=== PATIENT | male | born 1950 | race Caucasian/White ===

== ENCOUNTER 2017-04-27 13:57 | Emergency (ER) | payer OTHER ==
[~2017-04-27] VITALS: Ht 180.3 cm; Wt 131.8 kg
[~2017-04-27 13:57] MED LIST: AMOX TR-K CLV1 EAC4 PO; ANCEF,KEFZ2 GM/100 M IV; ASCORBIC ACID500 M3 PO; ASPIR 8181 M1 PO; ASTEPRO 0.15%30 ML BOTH NARES; ATENOLOL50 MG PO; ATORVASTATIN CA40 MG PO; AZITHROMYCIN250 MG1 PO; BENAZEPRIL HCL40 MG PO; BETAPACE 120 M120 MG PO; CARDURA XL8 MG PO; CARDURA4 MG PO; CEFUROXIME500 MG PO; CENTRUM SILVER1 EAC3 PO; COQ-10100 MG PO; CORICIDIN HBP1 EACH PO; COUMADIN5 MG PO; CRANBERRY 4001 EAC1 PO; DIGITEK250 MC2 PO; DOCUSATE SODIU100 MG PO; DOXAZOSIN MESYLA4 MG PO; ECHINACEA167 MG PO; ENDOCET 5-3251 EACH PO; FINASTERIDE5 MG PO; FISH OIL 1,0001 EAC7 PO; FISH OIL 1,2001 EAC4 PO; GARLIC1000 MG PO; LIPITOR40 MG PO; LIPO-FLAVONO1 TABLET PO; LIPOFLAVOVIT C1 EACH PO; LOTENSIN40 MG PO; MELOXICAM15 MG PO; MONTELUKAST SOD10 MG PO; MUCINEX DM ER1 EACH PO; OSTEO BI-FLEX1 EAC1 PO; SOTALOL120 MG PO; SPIRIVA RESPIMAT4 G1 IH; SYMBICORT60 INHALAT IH; TENORMIN50 MG PO; TRAMADOL HCL50 MG PO; VANCOMYCIN1 GM/250 M IV; VENASTAT PO; VITAMIN B-122000 MC1 PO; VITAMIN D31000 UNIT PO; VITAMIN E400 UNIT PO; WARFARIN SODIUM5 MG PO; XARELTO20 MG PO; ZINC50 M1 PO; ZYRTEC10 M2 PO
[2017-04-27 17:38] VITALS: BP 135/94
== END 2017-04-27 17:39 | disposition home or self-care (01) ==
LOC: EME 13:57
DX: S93.402A Sprain of unspecified ligament of left ankle, initial encounter (principal); W01.0XXA Fall on same level from slipping, tripping and stumbling without subsequent striking against object, initial encounter; I10 Essential (primary) hypertension; E78.5 Hyperlipidemia, unspecified; I48.91 Unspecified atrial fibrillation; Z79.01 Long term (current) use of anticoagulants; Z96.651 Presence of right artificial knee joint; Z87.891 Personal history of nicotine dependence
CPT/HCPCS: 73610; 99281; 99283

== ENCOUNTER 2017-07-06 14:57 | Emergency (ER) | payer OTHER ==
[~2017-07-06] VITALS: Ht 182.9 cm; Wt 137.9 kg
[2017-07-06 15:28] LABS: HEMATOCRIT 41.2 % (38.0-50.0); MCH 30.9 PG (29.0-34.0); MCV 90.9 FL (86-99); PLATELET COUNT 217 K/uL (156-360); RBC DIS.WIDTH-CV 12.9 % (11.8-14.6); RBC DIS.WIDTH-SD 42.6 % (39-53); RED BLOOD COUNT 4.53 M/uL (4.00-5.50); WHITE BLOOD COUNT 10.2 K/uL (4.1-10.2)
[2017-07-06 15:38] LABS: CHLORIDE 108 mEq/L (99-109); POTASSIUM 3.9 mEq/L (3.7-5.4); SODIUM 142 mEq/L (136-147)
[2017-07-06 15:39] LABS: GLUCOSE 130 mg/dL (70-99)
[2017-07-06 15:43] LABS: CREATININE 0.8 mg/dL (0.6-1.3); GFR ESTIMATE (CALCULATED) > 59 mL/min/ (58.99-99999)
[2017-07-06 15:44] LABS: UREA NITROGEN (BUN) 18 mg/dL (9-23)
[2017-07-06 15:49] LABS: TROP-I INTERPRETATION NEGATIVE; TROPONIN-I < 0.01 ng/mL (0.0-0.30)
[2017-07-06] MEDS ORDERED: ANTIVERT25 MG PO (17:41)
[2017-07-06 18:01] VITALS: BP 112/87
== END 2017-07-06 17:59 | disposition home or self-care (01) ==
LOC: EME 14:57
DX: R42 Dizziness and giddiness (principal); M25.532 Pain in left wrist; W18.2XXA Fall in (into) shower or empty bathtub, initial encounter; J45.909 Unspecified asthma, uncomplicated; Z96.651 Presence of right artificial knee joint; Z87.891 Personal history of nicotine dependence
CPT/HCPCS: 70450; 71046; 73110; 80048; 84484; 85027; 93005; 99281; 99284

== ENCOUNTER → 2017-07-18 | Outpatient (CLI) | payer OTHER ==
[~2017-07-18] VITALS: Ht 182.9 cm; Wt 137.6 kg
[~2017-07-18] MED LIST changes: +ANTIVERT25 MG PO
== END | disposition home or self-care (01) ==
LOC: AMB 11:08
PROC: 0DJD8ZZ Inspection of Lower Intestinal Tract, Via Natural or Artificial Opening Endoscopic (ICD-10-PCS; principal; 2017-07-18)
DX: K57.30 Diverticulosis of large intestine without perforation or abscess without bleeding (principal); K64.8 Other hemorrhoids; I10 Essential (primary) hypertension; J45.909 Unspecified asthma, uncomplicated; I48.91 Unspecified atrial fibrillation; E78.5 Hyperlipidemia, unspecified; G47.30 Sleep apnea, unspecified; Z86.73 Personal history of transient ischemic attack (TIA), and cerebral infarction without residual deficits; Z79.01 Long term (current) use of anticoagulants
CPT/HCPCS: J2250

== ENCOUNTER 2017-12-22 22:11 | Inpatient (IN) | payer OTHER ==
[~2017-12-22] VITALS: Ht 177.8 cm; Wt 155.5 kg
[~2017-12-22 22:11] MED LIST changes: +CARDURA2 M1 PO; -CARDURA4 MG PO; +DITROPAN5 MG PO; +FEOSOL325 MG PO; +NEURONTIN300 MG PO
[2017-12-23 10:08] VITALS: BP 151/89
[2017-12-23 14:12] LABS: HEMATOCRIT 37.3 % (38.0-50.0); HEMOGLOBIN 12.8 G/DL (12.5-16.6); MCH 31.4 PG (29.0-34.0); MCHC 34.3 G/DL (30.0-36.0); MCV 91.6 FL (86-99); PLATELET COUNT 154 K/uL (156-360); RBC DIS.WIDTH-CV 13.2 % (11.8-14.6); RBC DIS.WIDTH-SD 44.3 % (39-53); RED BLOOD COUNT 4.07 M/uL (4.00-5.50); WHITE BLOOD COUNT 13.7 K/uL (4.1-10.2)
[2017-12-23 14:56] VITALS: BP 140/91
[2017-12-23 19:55] VITALS: BP 133/72
[2017-12-23 23:21] VITALS: BP 132/78
[2017-12-24 04:15] VITALS: BP 148/86
[2017-12-24 06:53] LABS: HEMATOCRIT 37.2 % (38.0-50.0); HEMOGLOBIN 12.1 G/DL (12.5-16.6)
[2017-12-24 07:16] LABS: CHLORIDE 104 MEQ/L (99-109); CREATININE 0.9 MG/DL (0.6-1.3); GFR ESTIMATE (CALCULATED) > 59 mL/min/ (58.99-99999); GLUCOSE 133 mg/dL (70-99); POTASSIUM 4.1 MEQ/L (3.7-5.4); SODIUM 139 MEQ/L (136-147); UREA NITROGEN (BUN) 21 mg/dL (9-23)
[2017-12-24] MEDS ORDERED: ELIQUIS2.5 MG PO (08:27)
[2017-12-24] MEDS ORDERED: OXYCODONE HCL5 MG PO (08:27)
[2017-12-24 08:39] VITALS: BP 135/88
[2017-12-24 12:00] VITALS: BP 114/68
[2017-12-24 15:23] VITALS: BP 130/82
[2017-12-24 23:36] VITALS: BP 134/76
[2017-12-25 06:54] LABS: HEMATOCRIT 35.2 % (38.0-50.0); HEMOGLOBIN 11.6 G/DL (12.5-16.6); MCV 90.5 FL (86-99)
[2017-12-25 08:17] VITALS: BP 167/97
[2017-12-25 16:10] VITALS: BP 126/77
[2017-12-25 23:10] VITALS: BP 146/80
[2017-12-26 07:31] VITALS: BP 145/95
== END 2017-12-26 14:43 | DRG 470 ==
LOC: ENRESERV 22:11 → 2SOUTH 12-23 08:58 → 3EAST 12-23 08:58 → 2SOUTH 12-23 13:19 → ENRESERV 12-23 13:51 → 3EAST 12-23 14:47 → 2SOUTH 12-23 15:05 → 3EAST 12-26 14:43
PROVIDERS: Orthopaedic Surgery
PROC: 0SRD0J9 Replacement of Left Knee Joint with Synthetic Substitute, Cemented, Open Approach (ICD-10-PCS; principal; 2017-12-23)
DX: M17.12 Unilateral primary osteoarthritis, left knee (principal); Z68.42 Body mass index [BMI] 45.0-49.9, adult; D62 Acute posthemorrhagic anemia; F33.9 Major depressive disorder, recurrent, unspecified; I10 Essential (primary) hypertension; E11.9 Type 2 diabetes mellitus without complications; J45.909 Unspecified asthma, uncomplicated; I48.2 Chronic atrial fibrillation; E66.01 Morbid (severe) obesity due to excess calories; E78.2 Mixed hyperlipidemia; N40.0 Benign prostatic hyperplasia without lower urinary tract symptoms; Z96.651 Presence of right artificial knee joint; Z86.718 Personal history of other venous thrombosis and embolism; Z86.73 Personal history of transient ischemic attack (TIA), and cerebral infarction without residual deficits; Z90.49 Acquired absence of other specified parts of digestive tract; Z87.891 Personal history of nicotine dependence; Z79.01 Long term (current) use of anticoagulants
CPT/HCPCS: 71045; 73560; 80048; 82948; 85014; 85018; 85027; 94640; 94799; 97530 GP; C1713; J0131; J0330; J0690; J1170; J1815; J2250; J2405; J2795; J3010; J7050